=== PATIENT | male | born 1995 | race Caucasian/White ===

== ENCOUNTER 2018-06-30 10:57 | Inpatient (IN) | payer MEDICAID ==
[~2018-06-30] VITALS: Ht 172.7 cm; Wt 74.4 kg
[2018-06-30] MEDS ORDERED: LORazepam 2 MG/ML VIAL IM ONE (12:15)
[2018-06-30] MEDS ORDERED: DiphenhydrAMINE HCL 50 MG/ML VIAL IM ONE (12:15)
[2018-06-30] MEDS ORDERED: HALOPERIDOL LACTATE 5 MG/ML VIAL IM ONE (12:15)
[2018-06-30 12:31] LABS: BASOPHILS % (AUTO) 0.4 % (0.0-2.0); EOSINOPHILS % (AUTO) 0.1 % (1.0-6.0); HEMATOCRIT 49.2 % (41-53); HEMOGLOBIN 16.8 g/dL (13.5-17.5); LYMPHOCYTES # (AUTO) 1.2 K/uL (1.0-4.8); LYMPHOCYTES % (AUTO) 11.8 % (22.0-44.0); MEAN CORPUSCULAR HEMOGLOBIN 31.5 pg (26.0-34.0); MEAN CORPUSCULAR VOLUME 93 fL (80-100); MONOCYTES # (AUTO) 0.9 K/uL (0.1-1.0); MONOCYTES % (AUTO) 8.3 % (2.0-9.0); NEUTROPHILS # (AUTO) 8.4 K/uL (1.8-7.7); NEUTROPHILS % (AUTO) 79.4 % (40.0-70.0); PLATELET COUNT (AUTO) 195 K/uL (150-450); RED BLOOD CELL COUNT(AUTO) 5.32 MIL/uL (4.50-5.90); RED CELL DISTRIBUTION WIDTH 14.2 % (11.5-14.5)
[2018-06-30 12:40] LABS: ANION GAP 12 mmol/L (8-16); CALCIUM, TOTAL 9.4 mg/dL (8.8-10.5); CARBON DIOXIDE 27 mmol/L (22-29); CHLORIDE 101 mmol/L (98-107); CREATININE 0.93 mg/dL (0.60-1.30); GLOMERULAR FILTR. RATE CALC > 60 mL/min (>60); GLUCOSE,RANDOM 117 mg/dL (70-110); POTASSIUM 3.9 mmol/L (3.5-5.1); SODIUM SERUM 140 mmol/L (136-145); UREA NITROGEN, BLOOD 11 mg/dL (7-18)
[2018-06-30 12:46] LABS: ALANINE AMINOTRANSFERASE 105 U/L (12-78); ALBUMIN 4.4 g/dL (3.4-5.0); ALKALINE PHOSPHATASE 92 U/L (46-116); ASPARTATE AMINOTRANSFERASE 48 U/L (15-37); BILIRUBIN,TOTAL 0.8 mg/dL (0.1-1.0); TOTAL PROTEIN, SERUM 8.1 g/dL (6.4-8.2)
[2018-06-30] MEDS ORDERED: ZOLPIDEM TARTRATE 10 MG TABLET PO PRN (13:00)
[2018-06-30] MEDS ORDERED: OLANZapine 5 MG RAPDIS TABLET PO PRN (13:00)
[2018-06-30] MEDS ORDERED: FOLI1 PO (14:54)
[2018-06-30] MEDS ORDERED: OLAN7.5T2 PO (14:54)
[2018-06-30 16:04] VITALS: BP 135/95
[2018-06-30] MEDS ORDERED: PETROLATUM,WHITE 71 GM JELLY TP PRN (18:00)
[2018-06-30] MEDS ORDERED: ACETAMINOPHEN 325 MG TABLET PO PRN (18:00)
[2018-06-30] MEDS ORDERED: MAGNESIUM HYDROXIDE SUSPENSION 30 ML UDCUP PO PRN (18:00)
[2018-06-30] MEDS ORDERED: ONDANSETRON HCL 4 MG TABLET PO PRN (18:00)
[2018-06-30] MEDS ORDERED: NICOTINE 14 MG/24 HOUR PATCH TD PRN (18:00)
[2018-06-30] MEDS ORDERED: DOCUSATE SODIUM 100 MG CAPSULE PO PRN (18:00)
[2018-06-30] MEDS ORDERED: IBUPROFEN 400 MG TABLET PO PRN (18:00)
[2018-06-30] MEDS ORDERED: CloNIDine HCL 0.1 MG TABLET PO PRN (18:00)
[2018-06-30] MEDS ORDERED: GuaiFENesin/D-METHORPHAN [SUGAR-FREE] 200-20MG/10 ML SYRUP UDCUP PO PRN (18:00)
[2018-06-30] MEDS ORDERED: ALBUTEROL SULFATE HFA 90 MCG/PUFF 8 GM INHALER IH PRN (18:00)
[2018-06-30] MEDS ORDERED: LOPERAMIDE HCL 2 MG CAPSULE PO PRN (18:00)
[2018-06-30] MEDS ORDERED: MAG HYDROX/AL HYDROX/SIMETH ES 30 ML SUSPENSION UDCUP PO PRN (18:00)
[2018-07-01 01:26] VITALS: BP 131/79
[2018-07-01 08:12] VITALS: BP 129/76
[2018-07-01 08:54] LABS: HEMOGLOBIN A1C 5.3 % (4.5-6.2)
[2018-07-01 09:03] LABS: CHOL/HDL RATIO 5.6 (4.2-7.3); THYROID STIMULATING HORMONE 1.3 uIU/mL (0.36-3.74)
[2018-07-01] MEDS: FOLIC ACID 1 MG TABLET PO SCH (09:34)
[2018-07-01] MEDS: ARIPiprazole 10 MG TABLET PO SCH (12:14)
[2018-07-01 17:07] VITALS: BP 135/84
[2018-07-01] MEDS: LORazepam 2 MG TABLET PO PRN (17:08)
[2018-07-02 07:06] VITALS: BP 130/82
[2018-07-02 08:11] VITALS: BP 136/78
[2018-07-02] MEDS: ARIPiprazole 10 MG TABLET PO SCH (08:52)
[2018-07-02] MEDS: FOLIC ACID 1 MG TABLET PO SCH (08:52)
[2018-07-02] MEDS: LORazepam 2 MG TABLET PO PRN (16:25)
[2018-07-02 16:30] VITALS: BP 125/85
[2018-07-03 05:41] VITALS: BP 132/88
[2018-07-03] MEDS: ARIPiprazole 10 MG TABLET PO SCH (09:07)
[2018-07-03] MEDS: FOLIC ACID 1 MG TABLET PO SCH (09:07)
[2018-07-03 09:20] VITALS: BP 139/81
[2018-07-03] MEDS: LORazepam 2 MG TABLET PO PRN ×2 (10:59→16:24)
[2018-07-03 16:00] VITALS: BP 138/88
[2018-07-04 04:07] VITALS: BP 113/69
[2018-07-04] MEDS: FOLIC ACID 1 MG TABLET PO SCH (08:22)
[2018-07-04] MEDS ORDERED: ARIP15TA2 PO (08:33)
[2018-07-04] MEDS ORDERED: ARIPiprazole 15 MG TABLET PO SCH (09:00)
== END 2018-07-04 08:50 | disposition home or self-care (01) | DRG 750 ==
LOC: EMS 10:59 → B3A 13:52
PROVIDERS: ADMIT Psychiatry & Neurology Psychiatry; ATTEND Psychiatry & Neurology Psychiatry
DX: F20.0 Paranoid schizophrenia (principal); M41.9 Scoliosis, unspecified; E78.5 Hyperlipidemia, unspecified; M54.9 Dorsalgia, unspecified; G89.29 Other chronic pain; R00.0 Tachycardia, unspecified; R74.0 Nonspecific elevation of levels of transaminase and lactic acid dehydrogenase [LDH]; Z91.19 Patient's noncompliance with other medical treatment and regimen; Z79.899 Other long term (current) drug therapy
CPT/HCPCS: 83036; 84443; 96372; G0480; J1200; J1630; J2060